=== PATIENT | female | born 1935 | race Caucasian/White ===

== ENCOUNTER 2019-05-20 10:56 | Outpatient (CLI) | payer MEDICARE ==
--- NOTE | 2019-05-20 11:37 | RAD ---
THREE VIEWS THORACIC SPINE: HISTORY: Back pain. COMPARISON: None. FINDINGS: AP, lateral and swimmer's view of the thoracic spine demonstrate marked S-shaped scoliotic curvature of the thoracic and lumbar spine. There is rightward rotation of the visualized upper lumbar spine. Multilevel degenerative changes with loss of disc space height and osteophyte formation is not ed. No obvious fractures. There is mild bone demineralization. Atherosclerosis of the aorta is noted. IMPRESSION: 1. Demineralization. 2. S-shaped scoliotic curvature of the thoracic and lumbar spine with dextrorotoscoliosis of the visu alized lumbar spine. Transcribed Date/Time: 05/20/2019 12:01 PM
--- NOTE | 2019-05-20 13:26 | RAD ---
LUMBAR SPINE SERIES 2 VIEWS: Date: 05/20/2019 HISTORY: Back pain. FINDINGS: There is severe scoliotic change to the spine convex to the right. The bones are demineralized. Verte bral body height appears fairly well maintained. Degenerative disc narrowing is most pronounced at L1 -2, L2-3, and L3-4. Prominent degenerative facet changes are noted. IMPRESSION: Severe scoliosis and marked arthritic changes of the spine. POS: JATINDER
== END 2019-05-20 10:57 | disposition home or self-care (01) ==
LOC: BICRAD 10:56
PROVIDERS: ATTEND Family Medicine
DX: M54.5 Low back pain (principal); M41.9 Scoliosis, unspecified; M81.0 Age-related osteoporosis without current pathological fracture; M46.96 Unspecified inflammatory spondylopathy, lumbar region
CPT/HCPCS: 36415; 72072; 72100; 80053; 80061; 84443; 85025

== ENCOUNTER 2019-09-16 12:57 | Outpatient (CLI) | payer MEDICARE ==
--- NOTE | 2019-09-16 13:17 | ULT ---
Ultrasound right knee: 09/16/2019 HISTORY: ICD-10: M 25.561, pain in right knee in 84-year-old female. TECHNIQUE: Focused ultrasound of the posterior aspect of the right knee. FINDINGS: There is an approximately 4.5 x 1.5 x 3.5 cm mass in the popliteal fossa. The majority of it is anech oic. A portion of it has intermediate echogenicity similar to surrounding soft tissues. No blood flow is demonstrated within this mass. 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
== END 2019-09-16 12:58 | disposition home or self-care (01) ==
LOC: BICULT 12:57
PROVIDERS: ATTEND Family Medicine
DX: M25.561 Pain in right knee (principal); M71.21 Synovial cyst of popliteal space [Baker], right knee
CPT/HCPCS: 76999

== ENCOUNTER 2021-06-11 17:30 | Inpatient (IN) | payer MEDICARE ==
[2021-06-11 17:52] LABS: Hemoglobin 12.6 g/dL (12.0-16.0); Mean Corpuscular HGB CONC 30.8 g/dL (32.0-36.0); Mean Corpuscular Hemoglobin 29.2 pg (27.0-31.0); Mean Corpuscular Volume 94.8 fL (78.0-98.0); Mean Platelet Volume 8.5 fL (7.4-10.4); Platelet Count 192 thou/uL (130-400); RBC Distribution Width 13.2 % (11.5-14.5); White Blood Cell (WBC) Count 15.9 thou/uL (4.8-10.8)
[2021-06-11 18:03] LABS: INR-International Normal Ratio 1.3; Prothrombin Time 15.9 sec (12.0-14.7)
[2021-06-11 18:04] LABS: PTT 35.1 sec (22.9-36.1)
[2021-06-11 18:07] LABS: ALT (SGPT) 45 U/L (8-55); AST (SGOT) 148 U/L (5-34); Albumin 3.6 g/dL (3.4-4.8); Alkaline Phosphatase 64 U/L (40-110); Anion Gap 18 mmol/L (10-20); BUN (Urea Nitrogen) 29 mg/dL (9.8-20.1); Bilirubin, Total 0.5 mg/dL (0.2-1.2); CK (CPK) 3070 U/L (29-168); Calc. Creatinine Clearance 0 mL/min (70-130); Calcium 9.3 mg/dL (7.8-10.44); Carbon Dioxide 19 mmol/L (23-31); Chloride 106 mmol/L (98-107); Globulin 3.6 g/dL (2.4-3.5); Glucose 107 mg/dL (83-110); Potassium 3.8 mmol/L (3.5-5.1); Protein, Total 7.2 g/dL (5.8-8.1); Sodium 139 mmol/L (136-145)
[2021-06-11 18:10] LABS: Band 41 % (5-11); Lymphocytes 3 % (21-51); MDiff Complete? YES; Monocytes 8 % (0-10); Myelocyte 1 % (0-0); Neutrophil 47 % (42-75); Platelet Morphology Comment Appears Adequate; RBC Morphology Normal; Reflex for Review?? YES
[2021-06-11 18:15] LABS: Bilirubin Negative (Negative); Blood, Urine 3+ (Negative); Glucose, Urine (Dipstick) Normal (Negative); Ketone, Urine Negative (Negative); Leukocyte Negative Leu/uL (Negative); Nitrite Negative (Negative); Protein, Urine (Dipstick) 70 mg/dL (Neg-Trace); RBC/HPF 0-3 HPF (0-3); Specific Gravity, Urine 1.023 (1.002-1.036); Squamous Epithelial 0-3 HPF (0-3); Urobilinogen Normal mg/dL (Less than 2); WBC/HPF 0-3 HPF (0-3); pH, Urine 5.5 (5.0-9.0)
[2021-06-11 18:21] LABS: Amphetamine Not Detected (NotDetected); Barbiturates Screen Not Detected (NotDetected); Benzodiazepine Screen Not Detected (NotDetected); Cocaine Metabolite Screen Not Detected (NotDetected); Methadone Not Detected (NotDetected); Methamphetamine Not Detected (NotDetected); Opiate Screen Not Detected (NotDetected); Oxycodone Screen Not Detected (NotDetected); Phencyclidine (PCP) Not Detected (NotDetected); THC/Cannabinoid Screen Not Detected (NotDetected); Tricyclic Screen Not Detected (NotDetected)
[2021-06-11 18:25] LABS: Bacteria/HPF Rare-Few HPF (None Seen)
[2021-06-11 18:26] LABS: Clarity Hazy (Clear)
[2021-06-11] MEDS ORDERED: Aspirin 300 MG Suppository ONE (18:31)
[2021-06-11 18:45] LABS: CKMB 81.1 ng/mL (0-6.6)
[2021-06-11] MEDS ORDERED: Heparin 10,000 UNITS/ 10 ML VIAL ONE (19:48)
[2021-06-11] MEDS ORDERED: Heparin 25,000 units/D5W 500 ML ONE (19:49)
[2021-06-11 19:55] LABS: Actual Bicarbonate (HCO3a) 19.2 mEq/L (22-28); Analyzer IN Cardio ER; CO2 Tension 45.9 mmHg (35.0-45.0); Calcium, Ionized (arterial) 1.21 mmol/L (1.12-1.30); Carboxyhemoglobin (COHb) 0.3 gm% (0.0-3.0); Hemoglobin (Hb) 12.4 g/dL (12.0-16.0); O2 Tension (PaO2), arterial 110.8 mmHg (> 60.0); Potassium - ABG Lab 3.45 mmol/L (3.70-5.30)
[2021-06-11 19:56] LABS: Puncture Site RRA; pH, Arterial 7.24 (7.35-7.45)
[2021-06-11 20:01] LABS: ALV-art Gradient 544.825 mmHg (0-20)
[2021-06-11] MEDS ORDERED: Acetaminophen 325 MG TAB PO PRN (20:14)
[2021-06-11] MEDS ORDERED: Ondansetron PF 4 MG/2 ML Vial IVP PRN (20:14)
[2021-06-11] MEDS ORDERED: Sodium Bicarb 50 MEQ/50 ML Abboject 8.4% SYRINGE IVP SCH (20:30)
[2021-06-11] MEDS ORDERED: Sodium Chloride 0.9% 1,000 ML IV SCH (20:30)
[2021-06-11 20:53] LABS: Lactic Acid 3.6 mmol/L (0.5-2.2)
[2021-06-11] MEDS ORDERED: Sodium Bicarb 50 MEQ/50 ML Abboject 8.4% SYRINGE ONE (20:54)
[2021-06-11] MEDS ORDERED: Vancomycin 1 GM in Premix Bag 1 BAG IVPB SCH (21:00)
[2021-06-11] MEDS ORDERED: Cefepime 2 GM in Sodium Chloride 0.9% 100 ML IVPB SCH (21:00)
[2021-06-11] MEDS ORDERED: Pantoprazole 40 MG VIAL IVP SCH (21:00)
[2021-06-11 21:40] LABS: Troponin I 3.005 ng/mL (< 0.028)
[2021-06-11] MEDS ORDERED: Morphine 4 MG/ML VIAL ONE (21:40)
[2021-06-11] MEDS ORDERED: Acetaminophen 325 MG Suppository ONE (22:35)
[2021-06-11] MEDS ORDERED: Acetaminophen 650 MG Suppository ONE (22:35)
[2021-06-11] MEDS ORDERED: Vancomycin 1 GM/200 ML BAG ONE (22:36)
[2021-06-11] MEDS ORDERED: Cefepime 2 GM VIAL ONE ×2 (22:36)
[2021-06-12 06:32] VITALS: BMI 25.3
[2021-06-12 06:44] LABS: Anion Gap 12 mmol/L (10-20); BUN (Urea Nitrogen) 28 mg/dL (9.8-20.1); CK (CPK) 2165 U/L (29-168); Calc. Creatinine Clearance 43 mL/min (70-130); Carbon Dioxide 30 mmol/L (23-31); Chloride 109 mmol/L (98-107); Glucose 85 mg/dL (83-110); Potassium 3.2 mmol/L (3.5-5.1); Sodium 148 mmol/L (136-145)
[2021-06-12 06:59] LABS: Band 25 % (5-11); Hemoglobin 11.8 g/dL (12.0-16.0); Lymphocytes 2 % (21-51); MDiff Complete? YES; Mean Corpuscular HGB CONC 31.8 g/dL (32.0-36.0); Mean Corpuscular Hemoglobin 29.9 pg (27.0-31.0); Mean Corpuscular Volume 93.9 fL (78.0-98.0); Mean Platelet Volume 8.6 fL (7.4-10.4); Monocytes 2 % (0-10); Myelocyte 1 % (0-0); Neutrophil 70 % (42-75); Platelet Count 132 thou/uL (130-400); Red Blood Cell (RBC) Count 3.95 mill/uL (4.20-5.40); White Blood Cell (WBC) Count 9.4 thou/uL (4.8-10.8)
[2021-06-12] MEDS ORDERED: Morphine 4 MG/ML VIAL SLOW IVP PRN (07:14)
[2021-06-12] MEDS ORDERED: Lorazepam 2 MG/ML VIAL SLOW IVP PRN (07:14)
[2021-06-12] MEDS ORDERED: Iopamidol 370 76% 100 ML VIAL ONE (09:45)
[2021-06-12 12:11] LABS: SARS-CoV-2 PCR by NAA Not Detected (NotDetected)
[2021-06-12] MEDS: Cefepime 2 GM in Sodium Chloride 0.9% 100 ML IVPB SCH (14:34)
[2021-06-12] MEDS ORDERED: Vancomycin 1 GM in Premix Bag 1 BAG IVPB SCH (23:00)
[2021-06-13] MEDS: Cefepime 2 GM in Sodium Chloride 0.9% 100 ML IVPB SCH (00:48)
[2021-06-13 08:56] LABS: Band 39 % (5-11); Hemoglobin 11.2 g/dL (12.0-16.0); Hypochromia SLIGHT = 6-15 cells (100X) (0-5/hpf); Lymphocytes 2 % (21-51); MDiff Complete? YES; Mean Corpuscular HGB CONC 30.9 g/dL (32.0-36.0); Mean Corpuscular Hemoglobin 29.5 pg (27.0-31.0); Mean Corpuscular Volume 95.4 fL (78.0-98.0); Mean Platelet Volume 9.1 fL (7.4-10.4); Monocytes 8 % (0-10); Neutrophil 50 % (42-75); Platelet Count 135 thou/uL (130-400); Platelet Morphology Comment Appears Adequate; Polychromasia SLIGHT = 2-3 cells (100X) (0-2/hpf); RBC Distribution Width 13.4 % (11.5-14.5); Reactive Lymphocytes 1 % (0-10); Red Blood Cell (RBC) Count 3.79 mill/uL (4.20-5.40); White Blood Cell (WBC) Count 12.3 thou/uL (4.8-10.8)
[2021-06-13] MEDS ORDERED: Acetaminophen 650 MG Suppository PR PRN (09:00)
[2021-06-13 09:13] LABS: Anion Gap 14 mmol/L (10-20); BUN (Urea Nitrogen) 56 mg/dL (9.8-20.1); Calc. Creatinine Clearance 24 mL/min (70-130); Calcium 8.8 mg/dL (7.8-10.44); Carbon Dioxide 26 mmol/L (23-31); Chloride 113 mmol/L (98-107); Glucose 73 mg/dL (83-110); Sodium 149 mmol/L (136-145)
[2021-06-13 12:00] VITALS: BP 34/22; TEMP 102.8
[2021-06-13] MEDS ORDERED: Vancomycin 1 GM in Premix Bag 1 BAG IVPB SCH (12:45)
[2021-06-13] MEDS ORDERED: Cefepime 2 GM in Sodium Chloride 0.9% 100 ML IVPB SCH (23:00)
== END 2021-06-13 17:40 | disposition expired | DRG 871 ==
LOC: ERS 17:30 → SJJU 19:43 → 2NO 21:47 → UNDOADMOB 21:47 → INTOOBSV 21:51 → UNDOADMOB 21:51 → OBSVTOIN 21:51 → SJJU 21:51 → 2NO 22:19 → ERHOLD 22:19 → SJJU 22:19 → ERHOLD 06-12 00:51 → SJJU 06-12 00:51
PROVIDERS: ADMIT Internal Medicine; ATTEND Internal Medicine
DX: A40.3 Sepsis due to Streptococcus pneumoniae (principal); J13 Pneumonia due to Streptococcus pneumoniae; I21.A1 Myocardial infarction type 2; G93.41 Metabolic encephalopathy; J96.01 Acute respiratory failure with hypoxia; R65.20 Severe sepsis without septic shock; N17.9 Acute kidney failure, unspecified; M62.82 Rhabdomyolysis; K92.2 Gastrointestinal hemorrhage, unspecified; Z66 Do not resuscitate; Z20.822 Contact with and (suspected) exposure to COVID-19; Z51.5 Encounter for palliative care; I10 Essential (primary) hypertension; R79.89 Other specified abnormal findings of blood chemistry; H60.391 Other infective otitis externa, right ear; E87.70 Fluid overload, unspecified; Z86.73 Personal history of transient ischemic attack (TIA), and cerebral infarction without residual deficits; Z88.0 Allergy status to penicillin; Z79.899 Other long term (current) drug therapy; Z90.49 Acquired absence of other specified parts of digestive tract; Z87.891 Personal history of nicotine dependence
CPT/HCPCS: 36415; 36416; 36600; 70450; 71045; 71275; 72125; 80048; 80306; 81003; 81015; 82550; 82553; 82805; 83605; 83880; 84484; 85025; 85060; 85610; 85730; 87040; 87077; 87149; 87186; 93005; 93306; 94760; J0692; J1644; J2270; J3370; J3490; J7050; Q9967; U0003; U0005